=== PATIENT | female | born 1945 | race Caucasian/White ===

== ENCOUNTER 2021-04-07 16:40 | Inpatient (IN) | payer MEDICARE, OTHER ==
[~2021-04-07] VITALS: Ht 165.1 cm; Wt 107.5 kg
--- NOTE | 2021-04-07 17:12 | NUR ---
MIGUEL (DAUGHTER IN LAW) [phone].
[2021-04-07] MEDS ORDERED: ACETAMINOPHEN ES 500 MG TABLET ONE (17:24)
[2021-04-07] MEDS ORDERED: ACETAMINOPHEN ES 500 MG TABLET PO ONE (17:30)
[2021-04-07] MEDS ORDERED: IV NS 0.9% 500 ML BAG IV ONE ×2 (17:30→20:00)
--- NOTE | 2021-04-07 17:43 | NUR ---
[id number] FRM HOME, C/O DYSURIA, FEVER X 2 DAYS. PT AAOX3, DENIES CP, DIZZINESS, N/V AT THIS TIME. PLACED ON POULTRY HUSBANDRY TEACHER, ST. PLACED ON 2L OF O2, O2 SAT 98%. PT SEEN & EVAL'D BY DR. CAGLE. MEDICATED ORDERED, PT TERESITA WELL. WILL CONT TO MONITOR.
[2021-04-07 17:47] LABS: BASOPHILS # (AUTO) 0.1 /CMM (0.0-0.2); BASOPHILS % (AUTO) 0.4 % (0.0-2.0); EOSINOPHILS % (AUTO) 0.1 % (0.0-6.0); HEMATOCRIT 39 % (33-45); HEMOGLOBIN 12.9 g/dL (11.5-14.8); LYMPHOCYTES # (AUTO) 0.3 /CMM (0.8-4.8); LYMPHOCYTES % (AUTO) 1.6 % (20.0-44.0); MEAN CORPUSCULAR HGB CONC 34 g/dl (31.0-36.0); MEAN CORPUSCULAR VOLUME 96 fL (82-100); MONOCYTES # (AUTO) 0.6 /CMM (0.1-1.30); MONOCYTES % (AUTO) 2.9 % (2.0-12.0); NEUTROPHILS # (AUTO) 19.2 /CMM (1.8-8.9); PLATELET COUNT (AUTO) 221 /CMM (150-450); RED BLOOD CELL COUNT(AUTO) 3.99 MIL/uL (4.0-5.2); WHITE BLOOD COUNT (AUTO) 20.1 K/uL (4.3-11.0)
[2021-04-07 18:04] LABS: ALANINE AMINOTRANSFERASE 49 U/L (12-78); ALBUMIN 3.3 g/dL (3.4-5.0); ALKALINE PHOSPHATASE 155 U/L (46-116); ASPARTATE AMINOTRANSFERASE 44 U/L (15-37); BILIRUBIN,DIRECT 0.5 mg/dL (0.0-0.2); BILIRUBIN,TOTAL 1.1 mg/dL (0.2-1.0); CALCIUM, SERUM 8.6 mg/dL (8.5-10.1); CARBON DIOXIDE 27 mmol/L (21-32); CHLORIDE 102 mmol/L (98-107); CREATININE 1.6 mg/dL (0.6-1.3); GLUCOSE 195 mg/dL (74-106); POTASSIUM 3.2 mmol/L (3.5-5.1); SODIUM SERUM 139 mmol/L (136-145); TOTAL PROTEIN, SERUM 7.2 g/dL (6.4-8.2); UREA NITROGEN, BLOOD 28 mg/dL (7-18)
[2021-04-07] MEDS ORDERED: IV NS 0.9% 1,000 ML BAG IV ONE (18:30)
--- NOTE | 2021-04-07 18:38 | NUR ---
MOVE PACKET TURNED IN.
--- NOTE | 2021-04-07 18:48 | NUR ---
Tash gatica in [facility] - 04/07/21 at 1849 by PENNY CALLED NURSING SUP FOR TELE BED.
--- NOTE | 2021-04-07 18:49 | NUR ---
CALLED NURSING SUP FOR STEPHY BED.
[2021-04-07] MEDS ORDERED: LAMO200T10 PO (18:55)
[2021-04-07] MEDS ORDERED: ATEN50TA PO (18:55)
[2021-04-07] MEDS ORDERED: VORT10TA PO (18:55)
[2021-04-07] MEDS ORDERED: LACT10SO3 PO (18:55)
[2021-04-07] MEDS ORDERED: DORZ10DR10 EACHEYE (18:55)
[2021-04-07] MEDS ORDERED: TURM500C9 PO (18:55)
[2021-04-07] MEDS ORDERED: PREN1CAP27 PO (18:55)
[2021-04-07] MEDS ORDERED: CYCL30DR EACHEYE (18:55)
[2021-04-07] MEDS ORDERED: PRAV40TA3 PO (18:55)
[2021-04-07] MEDS ORDERED: POTA20TA83 PO (18:57)
[2021-04-07 19:35] LABS: BILIRUBIN,URINE SMALL (NEGATIVE); COLOR,URINE YELLOW (YELLOW); LEUKOCYTE ESTERASE ,URINE LARGE (NEGATIVE); NITRITE, URINE NEGATIVE (NEGATIVE); PH,URINE 5.5 (5.0-8.0); PROTEIN,URINE >=300 mg/dl (NEGATIVE); UGLUCOSE NEGATIVE (NEGATIVE)
[2021-04-07 19:44] LABS: BACTERIA,URINE 4+ /HPF (None Seen); RBC,URINE 51-80 /HPF (0-2); SQUAMOUS EPITHELIAL CELL,UR 0-2 /HPF (None Seen); WBC,URINE TOO NUMEROUS TO COUN /HPF (0-3)
[2021-04-07] MEDS ORDERED: PIPERACILLIN /TAZOBACTAM 3.375 G VIAL IV ONE (19:58)
[2021-04-07] MEDS ORDERED: VANCOMYCIN 1 GM VIAL ONE (19:58)
[2021-04-07] MEDS ORDERED: VANCOMYCIN 1 GM in IV D5W 250 ML IV ONE (20:00)
[2021-04-07] MEDS ORDERED: PIPERACILLIN /TAZOBACTAM 3.375 G in IV D5W 50 ML IV ONE (20:00)
[2021-04-07 20:30] LABS: BAND % (MANUAL) 16 % (0.0-5.0); LYMPHOCYTES % (MANUAL) 3 % (16-48); MONOCYTES % (MANUAL) 1 % (0-11.0); NEUTROPHILS % (MANUAL) 80 (42-76)
--- NOTE | 2021-04-07 20:43 | NUR ---
REPORT GIVEN TO ED RN FOR JUANY
[2021-04-07] MEDS ORDERED: NOREPINEPHRINE 4 MG/4 ML AMPUL IV ONE (20:59)
[2021-04-07] MEDS ORDERED: NOREPINEPHRINE 8 MG in IV NS 0.9% 250 ML IV ONE (21:00)
[2021-04-07] MEDS ORDERED: LEVALBUTEROL HCL NEB 1.25 MG/0.5 ML VIAL.NEB NEB PRN (22:00)
[2021-04-07] MEDS ORDERED: Potassium Chloride 20 MEQ in IV NS 0.9% 1,000 ML IV PRN (22:00)
[2021-04-07] MEDS ORDERED: MORPHINE SULFATE INJ 2 MG/ML DISP.SYRIN IV PRN (22:00)
[2021-04-07] MEDS ORDERED: CEFTRIAXONE 1 G in IV D5W 50 ML IV SCH (22:00)
[2021-04-07] MEDS ORDERED: ONDANSETRON HCL/PF 4 MG/2 ML VIAL IVP PRN (22:00)
[2021-04-07 22:05] VITALS: BP 157/90
--- NOTE | 2021-04-07 22:05 | NUR ---
PT TRANSPORTED TO ICU
[2021-04-07] MEDS ORDERED: CEFTRIAXONE 1 G VIAL ONE (22:24)
[2021-04-07] MEDS ORDERED: IV PREMIX NS +20MEQ KCL 1 L IV ONE (22:30)
[2021-04-07] MEDS ORDERED: PHENYLEPHRINE 10 MG/ML VIAL ONE (22:49)
[2021-04-07] MEDS: PHENYLEPHRINE 100 MG in IV NS 0.9% 240 ML IV PRN (22:55)
[2021-04-07 23:00] VITALS: BP 140/26
[2021-04-07 23:41] LABS: ABG BASE EXCESS -3.4 mmol/L; ABG OXYGEN SATURATION 95.6 % (92.0-98.5); ABG PCO2 28.5 mmHg (35.0-45.0); AaDO2 143.6 mmHg; COHb 1.1 % (0.5-1.5); MetHb 0.1 % (0.0-1.5); O2Hb 94.5 % (94.0-97.0); SITE, ABG Right Radial; VENT MODE, BG NC 4LPM O2
[2021-04-08] VITALS (80 sets, daily range): BP systolic 43–177; BP diastolic 13–93
[2021-04-08] MEDS ORDERED: LORAZEPAM INJ 2 MG/ML VIAL IV PRN (04:00)
[2021-04-08 04:18] LABS: BASOPHILS % (AUTO) 0.2 % (0.0-2.0); HEMATOCRIT 35 % (33-45); HEMOGLOBIN 11.6 g/dL (11.5-14.8); LYMPHOCYTES # (AUTO) 0.3 /CMM (0.8-4.8); LYMPHOCYTES % (AUTO) 1.9 % (20.0-44.0); MEAN CORPUSCULAR HGB CONC 34 g/dl (31.0-36.0); MEAN CORPUSCULAR VOLUME 97 fL (82-100); MONOCYTES # (AUTO) 0.5 /CMM (0.1-1.30); MONOCYTES % (AUTO) 3.3 % (2.0-12.0); NEUTROPHILS # (AUTO) 14.8 /CMM (1.8-8.9); NEUTROPHILS % (AUTO) 94.6 % (43.0-81.0); PLATELET COUNT (AUTO) 175 /CMM (150-450); RED BLOOD CELL COUNT(AUTO) 3.57 MIL/uL (4.0-5.2); WHITE BLOOD COUNT (AUTO) 15.7 K/uL (4.3-11.0)
[2021-04-08 04:36] LABS: ALANINE AMINOTRANSFERASE 38 U/L (12-78); ALBUMIN 2.7 g/dL (3.4-5.0); ALKALINE PHOSPHATASE 136 U/L (46-116); ASPARTATE AMINOTRANSFERASE 35 U/L (15-37); BILIRUBIN,TOTAL 0.9 mg/dL (0.2-1.0); CALCIUM, SERUM 7.7 mg/dL (8.5-10.1); CARBON DIOXIDE 24 mmol/L (21-32); CHLORIDE 103 mmol/L (98-107); CREATININE 1.6 mg/dL (0.6-1.3); GLUCOSE 176 mg/dL (74-106); PHOSPHORUS 2.6 mg/dL (2.5-4.9); POTASSIUM 3.3 mmol/L (3.5-5.1); SODIUM SERUM 139 mmol/L (136-145); TOTAL PROTEIN, SERUM 6.3 g/dL (6.4-8.2); UREA NITROGEN, BLOOD 32 mg/dL (7-18)
[2021-04-08 04:41] LABS: CHOLESTEROL 116 mg/dL (<200); HDL CHOLESTEROL 57 mg/dL (40-60); LDL 32 mg/dL (0-99); TRIGLYCERIDES 127 mg/dL (30-150)
--- NOTE | 2021-04-08 05:00 | NUR ---
TABLE MACHINE OPERATOR. PT WAS ADMITTED FROM ER WITH DIAGNOSIS UTI, SEPSIS. PT WAS AWAKE, ALERT ORIENTED, PLEASANT AND COOPERATIVE. SCOPE-A.FIB, WITH HR-110-130, HYPOTENSIVE. STARTED PHENYLEPHRINE DRIP, LEVOPHED D/C. 02 4L VIA N/C. F/C DRAINS SUFFICIENT AMT. OF CLOUDY URINE. AROUND MN PT GOT CONFUSED, TRYING TO GET OUT OF BED. SOFT WRIST RESTRAINTS APPLIED, ACCORDING MD ORDER. FOR AGITATION PT WAS GIVEN ATIVAN 1 MG IVP. SCOPE-ST WITH PAC'S. MEDICATED ORDERED. WILL CONTINUE CLOSE MONITORING.
[2021-04-08] MEDS ORDERED: MEROPENEM 500 MG in IV NS 0.9% 50 ML IV SCH (06:30)
[2021-04-08] MEDS ORDERED: FUROSEMIDE 20 MG/2 ML VIAL IV ONE (06:30)
--- NOTE | 2021-04-08 07:00 | NUR ---
RN NOTES RECEIVED PT ON BED, DRAWZY, RESTLESS, ORIENTED TO HER NAME , DOES NOT FOLLOW COMMAND, TRYING TO GET OUT OF THE BED, SAFETY MEASURES INPLACE, T=102.8, CONTINUE COOLING MEASURES , ON TELE A.FIB- ST HR IN 120'S, LARKIN DRAINING TO GRAVITY WITH CLOUDY YELLOW URINE, PT ON JAIME DRIP FOR BP SUPPORT, WILL TITRATED PER MD ORDER, IVF AT 70CC/HR RUNNING, SR UP x3, CALL LIGHT WITHIN EASY REACH BED LOCKED AND IN LOWEST POSITION, CONTINUE TO MONITOR .
[2021-04-08] MEDS: ACETAMINOPHEN 325 MG TABLET PO PRN ×2 (07:06→14:14)
[2021-04-08] MEDS: POTASSIUM CHLORIDE 20 MEQ TAB.PRT.SR PO SCH (08:08)
[2021-04-08] MEDS: PANTOPRAZOLE 40 MG TABLET.DR PO SCH (08:09)
[2021-04-08] MEDS: DOCUSATE SODIUM 100 MG CAPSULE PO SCH ×2 (08:09→16:36)
[2021-04-08] MEDS: LamoTRIgine 100 MG TABLET PO SCH (08:09)
[2021-04-08] MEDS: APIXABAN 2.5 MG TABLET PO SCH ×2 (08:09→16:36)
[2021-04-08] MEDS: MEROPENEM 1 G in IV NS 0.9% 100 ML IV SCH ×2 (08:38→21:05)
[2021-04-08] MEDS: DORZOLAMIDE OPTH 2% 10 ML BOTTLE EACHEYE SCH ×2 (08:38→16:37)
[2021-04-08] MEDS ORDERED: PHENYLEPHRINE 100 MG in IV NS 0.9% 240 ML IV PRN (09:00)
[2021-04-08] MEDS ORDERED: POTASSIUM CL. PREMIX PERIPHER. 50 ML IV SCH (09:30)
[2021-04-08] MEDS: HYDROCORTISONE SOD SUCCINATE 100 MG/2 ML VIAL IV SCH ×2 (11:19→21:05)
--- NOTE | 2021-04-08 11:49 | NUR ---
RN NOTES 6:30 Lasix held per carlos SHEET METAL ASSEMBLER AND RIVETER at this time ,
[2021-04-08] MEDS: PHENYLEPHRINE 100 MG in IV NS 0.9% 240 ML IV PRN (13:14)
--- NOTE | 2021-04-08 14:00 | NUR ---
RN NOTES PT STILL ON JAIME DRIP, CONTINUE TO TITRATED PER ORDER ,
[2021-04-08] MEDS: VANCOMYCIN 1 GM in IV D5W 250ml IV SCH (15:40)
--- NOTE | 2021-04-08 16:00 | NUR ---
RN NOTES JAIME AT .4MCG/KG/MIN RUNNING, PT RESTING , MORE ORIENTED AND ABLE TO MAKE CONVERSATION .
--- NOTE | 2021-04-08 19:38 | NUR ---
PHOTOGRAPHER'S MODEL NOTE: Rec'd pt in bed, A&Ox2-3. On 4LPM NC, tolerating well. O2 sat WNL. No resp distress noted at this time. A-fib on tele monitor. BURT PICC line patent and flushed w/ German infusing at 0.4mcg/kg/min. Will titrate per protocol. RAC #20 and left hand #20 patent and flushed. Dressings c/d/i. Kruger catheter in place, patent and draining yellow, cloudy urine via gravity. Safety measures in place. Will continue to monitor.
--- NOTE | 2021-04-08 20:42 | NUR ---
LOW PRESSURE BOILER OPERATOR NOTE: Nocturnal BIPAP placed on by RT. 10/06 rate: 12, fio2: 40%. Will continue to monitor
--- NOTE | 2021-04-08 20:48 | NUR ---
PT PLACED ON NOC BIPAP. RN NOTIFIED. CONTINUE TO MONITOR.
--- NOTE | 2021-04-08 22:03 | NUR ---
SCHOOL LIBRARY MEDIA PROGRAM DIRECTOR NOTE: Pt's BP stable. Titrate German drip off per protocol. Will continue to monitor.
[2021-04-09] VITALS (34 sets, daily range): BP systolic 61–157; BP diastolic 34–100
[2021-04-09 04:13] LABS: BASOPHILS % (AUTO) 0.1 % (0.0-2.0); HEMATOCRIT 30 % (33-45); HEMOGLOBIN 10.1 g/dL (11.5-14.8); LYMPHOCYTES # (AUTO) 0.3 /CMM (0.8-4.8); LYMPHOCYTES % (AUTO) 3.3 % (20.0-44.0); MEAN CORPUSCULAR HGB CONC 34 g/dl (31.0-36.0); MEAN CORPUSCULAR VOLUME 98 fL (82-100); MONOCYTES # (AUTO) 0.4 /CMM (0.1-1.30); MONOCYTES % (AUTO) 3.9 % (2.0-12.0); NEUTROPHILS # (AUTO) 8.6 /CMM (1.8-8.9); NEUTROPHILS % (AUTO) 92.7 % (43.0-81.0); PLATELET COUNT (AUTO) 120 /CMM (150-450); RED BLOOD CELL COUNT(AUTO) 3.04 MIL/uL (4.0-5.2); WHITE BLOOD COUNT (AUTO) 9.3 K/uL (4.3-11.0)
[2021-04-09 04:34] LABS: CALCIUM, SERUM 7.6 mg/dL (8.5-10.1); CREATININE 1.3 mg/dL (0.6-1.3); POTASSIUM 3.9 mmol/L (3.5-5.1)
[2021-04-09] MEDS: HYDROCORTISONE SOD SUCCINATE 100 MG/2 ML VIAL IV SCH ×3 (05:19→20:17)
--- NOTE | 2021-04-09 05:52 | NUR ---
SUPERVISOR CONTACT LENS NOTE: Noc BIPAP removed by RT, placed back on 4LPM NC. Will continue to monitor.
--- NOTE | 2021-04-09 05:55 | NUR ---
PT TAKEN OFF BIPAP AND PLACED ON 4L NC. RN NOTIFIED
[2021-04-09] MEDS: DORZOLAMIDE OPTH 2% 10 ML BOTTLE EACHEYE SCH ×2 (06:28→16:46)
--- NOTE | 2021-04-09 07:00 | NUR ---
RN NOTES RECEIVED PT ON BED, A/Ox4, ON 4L O2 N/C , O2 SAT WNL, NO SOB NOTED, ON TELE AFIB, SR HR IN 90'S, LARKIN DRAINING TO GRAVITY , R UPPER ARM PICC LINE SITE CLEAN, DRY AND INTACT, SR UP x3, CALL LIGHT WITHIN EASY REACH, BED LOCKED AND IN LOWEST POSITION, CONTINUE TO MONITOR.
[2021-04-09] MEDS: POTASSIUM CHLORIDE 20 MEQ TAB.PRT.SR PO SCH (08:41)
[2021-04-09] MEDS: PANTOPRAZOLE 40 MG TABLET.DR PO SCH (08:42)
[2021-04-09] MEDS: DOCUSATE SODIUM 100 MG CAPSULE PO SCH ×2 (08:42→16:46)
[2021-04-09] MEDS: APIXABAN 2.5 MG TABLET PO SCH (08:42)
[2021-04-09] MEDS: LamoTRIgine 100 MG TABLET PO SCH (08:43)
[2021-04-09] MEDS: MEROPENEM 1 G in IV NS 0.9% 100 ML IV SCH ×2 (08:44→20:15)
[2021-04-09] MEDS: VANCOMYCIN 1 GM in IV D5W 250ml IV SCH (10:08)
[2021-04-09] MEDS: IPRATROPIUM NEB FS 0.5 MG/2.5 ML AMPUL.NEB NEB SCH ×4 (11:53→23:47)
[2021-04-09] MEDS: METOPROLOL TARTRATE 25 MG TABLET PO SCH ×2 (12:10→20:19)
--- NOTE | 2021-04-09 15:24 | NUR ---
TELE/RN NOTES RECEIVED REPORT FROM [facility] DATA DEVELOPER. PATIENT IS ON 2 L OXYGEN VIA NASAL CANNULA SATURATING WELL. PATIENT IN NO APPARENT RESPIRATORY DISTRESS NOTED. NO COMPLAINED OF PAIN NOTED AT THIS TIME. WILL CONTINUE TO MONITOR.
--- NOTE | 2021-04-09 15:34 | NUR ---
FRANK NOTES PT TRANSFERRED TO ROOM [address] [place] [address], VIA ACLS PROTOCOL IN STABLE CONDITION WITH ALL HER BELONGING . Addendum: 04/09/21 at 1536 by SHEMAR BURNS RN CORRECTION ABOVE TIME IS 15:10 PM
--- NOTE | 2021-04-09 16:15 | NUR ---
TELE/RN NOTES VTE SCORE > 5, VU [place] MANAGER WAS AWARE AND ORDER ELIQUIS 5MG BID P.O. NOTED AND CARRIED OUT.
--- NOTE | 2021-04-09 18:43 | NUR ---
TELE/RN CLOSING NOTES PATIENT IS ALERT AND ORIENTED X3. PATIENT IS ON 2L OXYGEN VIA NASAL CANNULA. PATIENT IN NO APPARENT RESPIRATORY DISTRESS NOTED. NO COMPLAINED OF PAIN NOTED AT THIS TIME. TELE MONITOR IN PLACED UNCONTROLLED AFIB. IV ACCESS AT RIGHT UPPER ARM PICC LINE, RIGHT AC #20G AND LEFT HAND # 20 G PATENT AND INTACT. SAFETY PRECAUTIONS WAS IN PLACED, BED IN LOWEST POSITION AND LOCKED. SIDERAILS UP X2. CALL LIGHT WITHIN REACH. WILL ENDORSED TO CONSTRUCTION EXECUTIVE FOR JUANY.
--- NOTE | 2021-04-09 19:30 | NUR ---
CONTROL CLERK FOOD AND BEVERAGE OPENING NOTE RECEIVED PT AWAKE IN BED. A/O X3. PT IS ON 2L O2 VIA NC, TOLERATING WELL. NO SOB OR S/S OF RESPIRATORY DISTRESS NOTED. PT HAS NO C/O PAIN OR DISCOMFORT AT THIS TIME. PT ON EXTERNAL COIN MACHINE ASSEMBLER READING UNCONTROLLED AFIB. IV ACCESS NOTED AT RIGHT UPPER ARM PICC LINE, RIGHT AC #20 AND LEFT HAND #20. IV IS INTACT, PATENT, AND FLUSHING WELL. SAFETY MEASURES MAINTAINED. BED IN LOWEST LOCKED POSITION, HOB ELEVATED, SIDE RAILS UP X2. CALL LIGHT AND TABLE WITHIN REACH. WILL CONTINUE WITH PLAN OF CARE. Addendum: 04/10/21 at 0014 by CURT GARCIA RN CONTROL CLERK FOOD AND BEVERAGE OPENING NOTE RECEIVED PT AWAKE IN BED. A/O X3. PT IS ON 2L O2 VIA NC, TOLERATING WELL. NO SOB OR S/S OF RESPIRATORY DISTRESS NOTED. PT HAS NO C/O PAIN OR DISCOMFORT AT THIS TIME. PT ON COIN MACHINE ASSEMBLER READING UNCONTROLLED AFIB. IV ACCESS NOTED AT RIGHT UPPER ARM PICC LINE, RIGHT AC #20 AND LEFT HAND #20. IV IS INTACT, PATENT, AND FLUSHING WELL. SAFETY MEASURES MAINTAINED. BED IN LOWEST LOCKED POSITION, HOB ELEVATED, SIDE RAILS UP X2. CALL LIGHT AND TABLE WITHIN REACH. WILL CONTINUE WITH PLAN OF CARE.
[2021-04-10] MEDS: IPRATROPIUM NEB FS 0.5 MG/2.5 ML AMPUL.NEB NEB SCH ×5 (04:01→20:20)
[2021-04-10 04:19] VITALS: BP 143/73
[2021-04-10] MEDS: HYDROCORTISONE SOD SUCCINATE 100 MG/2 ML VIAL IV SCH ×3 (04:28→21:05)
[2021-04-10 06:04] LABS: CALCIUM, SERUM 8.7 mg/dL (8.5-10.1); CREATININE 1.3 mg/dL (0.6-1.3); POTASSIUM 3.8 mmol/L (3.5-5.1)
--- NOTE | 2021-04-10 06:43 | NUR ---
TILE LAYER CLOSING NOTE PT IS AWAKE IN BED. A/O X3. PT ON 4L O2 VIA NC, TOLERATING WELL. NO SOB OR S/S OF RESPIRATORY DISTRESS NOTED. PT ON BOOK AGENT READING UNCONTROLLED AFIB. IV ACCESS IS INTACT, PATENT, AND FLUSHING WELL. LARKIN CATH IN PLACE DRAINING CLEAR YELLOW URINE. ALL NEEDS HAVE BEEN MET. SAFETY PRECAUTIONS MAINTAINED AT ALL TIMES. BED IN LOWEST LOCKED POSITION, HOB ELEVATED, SIDE RAILS UP X2. CALL LIGHT AND TABLE WITHIN REACH. WILL ENDORSE TO ONCOMING NURSE FOR JUANY.
--- NOTE | 2021-04-10 08:00 | NUR ---
RN OPENING NOTE RECEIVED PATIENT IN BED, AO X 3, ABLE TO RESPONDS ALL STIMULI. NO S/S OF DISTRESS OBSERVED. SKIN IS WARM TO TOUCH KEEP CLEAN/DRY, INTACT IV AND PICC LINE SITES. RESPIRATORY EVEN AND UNLABORED WITH OXYGEN AT 4LPM VIA NC, NO RESP DISTRESS OBSERVED. KEPT ELEVATED HOB FOR ENSURE AIRWAY AND ASPIRATION PRECAUTION, ALSO LOWEST BED POSITION FOE SAFETY. CALL LIGHT WITHIN REACH, WILL CONTINUE TO MONITOR.
[2021-04-10] MEDS: PANTOPRAZOLE 40 MG TABLET.DR PO SCH (08:29)
[2021-04-10] MEDS: POTASSIUM CHLORIDE 20 MEQ TAB.PRT.SR PO SCH (08:30)
[2021-04-10] MEDS: LamoTRIgine 100 MG TABLET PO SCH (08:30)
[2021-04-10] MEDS: DOCUSATE SODIUM 100 MG CAPSULE PO SCH ×2 (08:30→16:56)
[2021-04-10] MEDS: METOPROLOL TARTRATE 25 MG TABLET PO SCH ×2 (08:30→21:06)
[2021-04-10] MEDS: MEROPENEM 1 G in IV NS 0.9% 100 ML IV SCH ×2 (08:34→20:56)
[2021-04-10] MEDS: FUROSEMIDE 20 MG TABLET PO SCH (10:37)
[2021-04-10] MEDS: DORZOLAMIDE OPTH 2% 10 ML BOTTLE EACHEYE SCH ×2 (13:06→16:03)
--- NOTE | 2021-04-10 15:19 | NUR ---
PATIENT DVT SCORE OVER 5, MD AWARE HOWEVER DR. FRANCIS HELD ANTICOAGULANT MEDICATION,
--- NOTE | 2021-04-10 18:50 | NUR ---
RN CLOSING NOTE PATIENT RESTING IN ROOM, DOES NO OBSERVED DISTRESS. SKIN IS WARM TOUCH, KEEP CLEAN/DRY. PATIENT IN LARKIN CAHTE. RESPIRATORY EVEN AND UNLABORED ON ROOM AIR, O2SAT 89-93% AT RESTING. KEPT ELEVATED HOB FOR ENSURE AIRWAY, ALSO LOWEST BED POSITION FOR SAFETY. DTR AT BED SIDE, CALL LIGHT WITHIN REACH, WILL ENDORSE HUMAN INTELLIGENCE.
--- NOTE | 2021-04-10 19:30 | NUR ---
REO ASSET MANAGER OPENING NOTES RECEIVED PATIENT IN BED, AWAKE, A&O X4, IN NO ACUTE DISTRESS NOTED. ON ROOM AIR TOLERATING WELL, O2 SATURATION AT 93-94%. ON SNAP SHEARER, NOTED WITH A-FIB WITH HR 109. NO COMPLAINTS OF CHEST PAIN AT THIS TIME. WITH 3 LUMEN PICC LINE NOTED ON RIGHT UPPER ARM, INTACT AND FLUSHES WELL, NO REDNESS, NO INFILTRATION NOTED. SAFETY PRECAUTIONS OBSERVED: BED ON LOWEST LOCKED POSITION, SIDE RAILS UP X2, KEPT CALL LIGHT WITHIN EASY REACH. INSTRUCTED TO USE CALL LIGHT WHEN ASSISTANCE IS NEEDED. PATIENT VERBALIZED UNDERSTANDING. WILL CONTINUE TO MONITOR PATIENT'S CURRENT STATUS.
[2021-04-10 20:00] VITALS: BP 107/69
[2021-04-10 20:17] VITALS: BP 107/69
[2021-04-10] MEDS ORDERED: BENZONATATE 100 MG CAPSULE PO PRN (21:00)
[2021-04-10] MEDS ORDERED: APIXABAN 5 MG TABLET PO SCH (21:00)
[2021-04-11] VITALS (8 sets, daily range): BP systolic 100–146; BP diastolic 69–98
--- NOTE | 2021-04-11 00:04 | NUR ---
RN NOTES PATIENT REFUSED TO WEAR BIPAP, RISKS AND BENEFITS EXPLAINED 3 TIMES. STILL REFUSED.
[2021-04-11] MEDS: IPRATROPIUM NEB FS 0.5 MG/2.5 ML AMPUL.NEB NEB SCH ×7 (00:07→23:42)
[2021-04-11] MEDS: HYDROCORTISONE SOD SUCCINATE 100 MG/2 ML VIAL IV SCH ×3 (04:25→20:28)
[2021-04-11] MEDS: DORZOLAMIDE OPTH 2% 10 ML BOTTLE EACHEYE SCH ×2 (06:14→16:36)
[2021-04-11 06:26] LABS: CALCIUM, SERUM 8.6 mg/dL (8.5-10.1); CREATININE 1.1 mg/dL (0.6-1.3); POTASSIUM 4.5 mmol/L (3.5-5.1)
--- NOTE | 2021-04-11 06:33 | NUR ---
MANAGER TELEMARKETING CLOSING NOTES PATIENT IN BED, AWAKE, A&O X4, IN NO ACUTE DISTRESS NOTED. ON ROOM AIR TOLERATING WELL, O2 SATURATION AT 93-94%. ON OIL FIELD PUMPER, NOTED WITH A-FIB WITH HR 90'S. NO COMPLAINTS OF CHEST PAIN AT THIS TIME. WITH 3 LUMEN PICC LINE NOTED ON RIGHT UPPER ARM, INTACT AND FLUSHES WELL, NO REDNESS, NO INFILTRATION NOTED. WITH FC CONNECTED TO URINE BAG DRAINING CLEAR YELLOW URINE. SAFETY PRECAUTIONS OBSERVED AND MAINTAINED DURING THE SHIFT: BED ON LOWEST LOCKED POSITION, SIDE RAILS UP X2, KEPT CALL LIGHT WITHIN EASY REACH. ALL DUE MEDS GIVEN ORDERED. ENDORSED TO MORNING SHIFT NURSE FOR CONTINUITY OF CARE.
--- NOTE | 2021-04-11 07:50 | NUR ---
TELE/RN OPENING NOTES RECEIVED PATIENT IN BED, AWAKE, A&O X4, NO DISTRESS NOTED. ON OXYGEN AT 4LPM VIA NASAL CANNULA WITH O2 SAT READING OF 99%. ON GRAINING MACHINE OPERATOR, NO COMPLAINTS OF CHEST PAIN AT THIS TIME. WITH 3 LUMEN PICC LINE NOTED ON RIGHT UPPER ARM, INTACT AND FLUSHES WELL, NO REDNESS, NO INFILTRATION NOTED. WITH FC CONNECTED TO URINE BAG DRAINING TO CLEAR YELLOW URINE. SAFETY PRECAUTIONS IN PLACE. BED ON LOWEST LOCKED POSITION, SIDE RAILS UP X2, CALL LIGHT WITHIN REACH. WILL CONTINUE TO MONITOR PATIENT.
[2021-04-11] MEDS: LamoTRIgine 100 MG TABLET PO SCH (08:30)
[2021-04-11] MEDS: POTASSIUM CHLORIDE 20 MEQ TAB.PRT.SR PO SCH (08:30)
[2021-04-11] MEDS: PANTOPRAZOLE 40 MG TABLET.DR PO SCH (08:31)
[2021-04-11] MEDS: METOPROLOL TARTRATE 25 MG TABLET PO SCH ×2 (08:31→20:29)
[2021-04-11] MEDS: FUROSEMIDE 20 MG TABLET PO SCH (08:31)
[2021-04-11] MEDS: DOCUSATE SODIUM 100 MG CAPSULE PO SCH ×2 (08:31→17:24)
[2021-04-11] MEDS: MEROPENEM 1 G in IV NS 0.9% 100 ML IV SCH ×2 (09:03→20:28)
[2021-04-11] MEDS: BENZONATATE 100 MG CAPSULE PO SCH ×2 (13:49→17:25)
[2021-04-11] MEDS: VANCOMYCIN 1.25 GM in IV D5W 250 ML IV SCH (16:33)
--- NOTE | 2021-04-11 19:05 | NUR ---
TELE/RN CLOSING NOTES PATIENT IN BED, AWAKE, A&O X4, NO DISTRESS NOTED. ON OXYGEN AT 4LPM VIA NASAL CANNULA WITH O2 SAT READING OF 99%. REFUSED COPY READER, DR. RO MADE AWARE, NO COMPLAINTS OF CHEST PAIN AT THIS TIME. WITH 3 LUMEN PICC LINE NOTED ON RIGHT UPPER ARM, INTACT AND FLUSHES WELL, NO REDNESS, NO INFILTRATION NOTED. WITH FC CONNECTED TO URINE BAG DRAINING TO CLEAR YELLOW URINE. SAFETY PRECAUTIONS IN PLACE. BED ON LOWEST LOCKED POSITION, SIDE RAILS UP X2, CALL LIGHT WITHIN REACH. WILL ENDORSE TO THE NEXT SHIFT FOR CONTINUITY OF CARE.
--- NOTE | 2021-04-11 19:35 | NUR ---
MECHANICAL MAINTENANCE SUPERVISOR NOTES RECEIVED ON BED A/O X3,ABLE TO VERBALIZED NEEDS,BREATHING REGULAR,NOT IN ANY FORM OF DISTRESS,O2 IN USED AT 4L/NC,O2 SAT 92%.WITH RIGHT UPPER ARM PICC LINE FOR MEDS,DVT PUMP ION USED FOR DVT PROPHYLAXIS.AMBULATE WITH ASSIST.LARKIN CATH IN PLACE DRAINING CLEAR TO YELLOW URINE OUTPUT.FAL RISK,BED ALARM TRIGGERED,BED ON LOWEST POSITION AND LOCKED.CALL LIGHT IN REACH.NEEDS ANTICIPATED.
[2021-04-12] MEDS: IPRATROPIUM NEB FS 0.5 MG/2.5 ML AMPUL.NEB NEB SCH ×6 (03:30→23:35)
[2021-04-12] MEDS: HYDROCORTISONE SOD SUCCINATE 100 MG/2 ML VIAL IV SCH ×3 (04:31→20:33)
[2021-04-12 06:01] LABS: EOSINOPHILS % (AUTO) 0.2 % (0.0-6.0); HEMATOCRIT 32 % (33-45); HEMOGLOBIN 10.7 g/dL (11.5-14.8); LYMPHOCYTES # (AUTO) 0.8 /CMM (0.8-4.8); LYMPHOCYTES % (AUTO) 8.1 % (20.0-44.0); MEAN CORPUSCULAR HGB CONC 34 g/dl (31.0-36.0); MEAN CORPUSCULAR VOLUME 97 fL (82-100); MONOCYTES # (AUTO) 1.1 /CMM (0.1-1.30); MONOCYTES % (AUTO) 11.6 % (2.0-12.0); NEUTROPHILS # (AUTO) 7.7 /CMM (1.8-8.9); NEUTROPHILS % (AUTO) 80.1 % (43.0-81.0); PLATELET COUNT (AUTO) 163 /CMM (150-450); RED BLOOD CELL COUNT(AUTO) 3.28 MIL/uL (4.0-5.2); WHITE BLOOD COUNT (AUTO) 9.6 K/uL (4.3-11.0)
[2021-04-12] MEDS: DORZOLAMIDE OPTH 2% 10 ML BOTTLE EACHEYE SCH ×2 (06:05→17:13)
--- NOTE | 2021-04-12 06:23 | NUR ---
PENCIL INSPECTOR CLOSING NOTES PATIENT IN BED, AWAKE, A/O X3,ABLE TO VERBALIZED NEEDS,BREATHING EVEN AND UNLABORED,NOT IN ANY FORM OF DISTRESS NOTED,O2 IN USED AT 4L/NC,O2 SAT 94%, NO SOB NOTED. REFUSED TO BE HOOKED TO TELE MONITOR, DR. RO AWARE. WITH RIGHT UPPER ARM PICC LINE INTACT, NO REDNESS NOTED, DVT PUMP ION USED FOR DVT PROPHYLAXIS. AMBULATES WITH ASSIST. WITH FC CONNECTED TO URINE BAG IN DRAINING CLEAR TO YELLOW URINE OUTPUT. SAFETY PRECAUTIONS OBSERVED AND MAINTAINED AT ALL TIMES: BED ON LOWEST LOCKED POSITION, SIDE RAILS UP X 2,KEPT CALL LIGHT WITHIN EASY REACH. ALL DUE MEDS GIVE ORDERED. ENDORSED TO MORNING SHIFT NURSE FOR CONTINUITY OF CARE.
[2021-04-12 06:34] LABS: CALCIUM, SERUM 8.7 mg/dL (8.5-10.1); CREATININE 1.2 mg/dL (0.6-1.3); POTASSIUM 4.9 mmol/L (3.5-5.1)
--- NOTE | 2021-04-12 07:29 | NUR ---
TELE/RN OPENING NOTES RECEIVED PATIENT IN BED, AWAKE, A/O X3,ABLE TO VERBALIZED NEEDS,BREATHING EVEN AND UNLABORED,NOT IN ANY FORM OF DISTRESS NOTED,O2 IN USED AT 4L/NC,O2 SAT 97%, NO SOB NOTED. REFUSED TO BE HOOKED TO TELE MONITOR, DR. RO AWARE. WITH RIGHT UPPER ARM PICC LINE INTACT, NO REDNESS NOTED, DVT PUMP IN USED FOR DVT PROPHYLAXIS. AMBULATES WITH ASSIST. WITH FC CONNECTED TO URINE BAG IN DRAINING CLEAR TO YELLOW URINE OUTPUT. SAFETY PRECAUTIONS IN PLACED. BED ON LOWEST LOCKED POSITION, SIDE RAILS UP X 2, CALL LIGHT WITHIN REACH. WILL CONTINUE TO MONITOR.
[2021-04-12] MEDS: PANTOPRAZOLE 40 MG TABLET.DR PO SCH (07:49)
[2021-04-12 08:14] VITALS: BP 126/86
[2021-04-12] MEDS: LEVOTHYROXINE SODIUM 112 MCG TABLET PO SCH (09:05)
[2021-04-12] MEDS: BENZONATATE 100 MG CAPSULE PO SCH ×3 (09:24→17:13)
[2021-04-12] MEDS: MEROPENEM 1 G in IV NS 0.9% 100 ML IV SCH ×2 (09:24→20:33)
[2021-04-12] MEDS: METOPROLOL TARTRATE 25 MG TABLET PO SCH ×2 (09:24→20:33)
[2021-04-12] MEDS: DOCUSATE SODIUM 100 MG CAPSULE PO SCH ×2 (09:24→17:13)
[2021-04-12] MEDS: LamoTRIgine 100 MG TABLET PO SCH (09:25)
[2021-04-12] MEDS: POTASSIUM CHLORIDE 20 MEQ TAB.PRT.SR PO SCH (09:25)
[2021-04-12] MEDS: FUROSEMIDE 20 MG TABLET PO SCH (09:25)
[2021-04-12] MEDS ORDERED: ALBUTEROL HALF STRENGTH 1.25 MG/3 ML VIAL.NEB NEB PRN (14:00)
[2021-04-12] MEDS: VANCOMYCIN 1.25 GM in IV D5W 250 ML IV SCH (15:29)
[2021-04-12 16:04] VITALS: BP 120/85
--- NOTE | 2021-04-12 18:30 | NUR ---
TELE/RN NOTES PATIENT POSITIVE FOR ESBL IN URINE AND BLOOD. CONTACT PRECAUTION/ISOLATION CARRIED OUT. WILL ENDORSE TO THE NEXT SHIFT.
--- NOTE | 2021-04-12 19:06 | NUR ---
TELE/RN CLOSING NOTES PATIENT IN BED, AWAKE, A/O X3,ABLE TO VERBALIZED NEEDS. CURRENTLY ON O2 AT 4L/MIN VIA NC,O2 SAT 95%, NO DISTRESS NOTED AT THIS TIME. REFUSED TO BE HOOKED TO TELE MONITOR, DR. RO AWARE. WITH RIGHT UPPER ARM PICC LINE INTACT, NO REDNESS NOTED AND ON SALINE LOCK. DVT PUMP IN USED FOR DVT PROPHYLAXIS. AMBULATES WITH ASSIST. WITH FC CONNECTED TO URINE BAG IN DRAINING CLEAR TO YELLOW URINE OUTPUT. SAFETY PRECAUTIONS IN PLACED ALL THROUGHOUT THE SHIFT. BED ON LOWEST LOCKED POSITION, SIDE RAILS UP X 2, CALL LIGHT WITHIN REACH. WILL ENDORSE TO THE NEXT SHIFT FOR CONTINUITY OF CARE.
--- NOTE | 2021-04-12 19:56 | NUR ---
RN OPENING NOTES Patient is awake, A&Ox3, no signs of distress. Able to make needs known. Denies any needs at this time. Still refuses tele monitor. BURT PICC line intact and patent. Kruger catheter draining clear yellow urine. Will continue to monitor.
[2021-04-12 20:00] VITALS: BP 143/68
[2021-04-13] MEDS: IPRATROPIUM NEB FS 0.5 MG/2.5 ML AMPUL.NEB NEB SCH ×4 (03:42→14:42)
[2021-04-13] MEDS: HYDROCORTISONE SOD SUCCINATE 100 MG/2 ML VIAL IV SCH ×2 (05:38→13:06)
[2021-04-13 06:47] LABS: BASOPHILS % (AUTO) 0.2 % (0.0-2.0); EOSINOPHILS % (AUTO) 0.2 % (0.0-6.0); HEMATOCRIT 31 % (33-45); HEMOGLOBIN 10.4 g/dL (11.5-14.8); LYMPHOCYTES # (AUTO) 0.9 /CMM (0.8-4.8); LYMPHOCYTES % (AUTO) 7.3 % (20.0-44.0); MEAN CORPUSCULAR HGB CONC 34 g/dl (31.0-36.0); MEAN CORPUSCULAR VOLUME 97 fL (82-100); MONOCYTES # (AUTO) 1.1 /CMM (0.1-1.30); MONOCYTES % (AUTO) 8.4 % (2.0-12.0); NEUTROPHILS # (AUTO) 10.9 /CMM (1.8-8.9); NEUTROPHILS % (AUTO) 83.9 % (43.0-81.0); PLATELET COUNT (AUTO) 195 /CMM (150-450); RED BLOOD CELL COUNT(AUTO) 3.17 MIL/uL (4.0-5.2); WHITE BLOOD COUNT (AUTO) 12.9 K/uL (4.3-11.0)
--- NOTE | 2021-04-13 06:52 | NUR ---
MS RN CLOSING NOTES Patient A&Ox3. VSS. slept well throughout the night though easy to rouse. Bipap in place by BULK STATION OPERATOR. Patient reports shes looking forward to going home. BURT PICC line intact and patent, no redness or swelling to surrounding tissue. No overnight events. Urine to amin yellow and clear. Continue on Contact precautions for ESBL to urine. continue on ABT, no ase.
[2021-04-13 07:20] LABS: CALCIUM, SERUM 8.6 mg/dL (8.5-10.1); POTASSIUM 4.2 mmol/L (3.5-5.1)
--- NOTE | 2021-04-13 07:30 | NUR ---
received pt. in am alert and oriented x3,with many complaints.vs stable.f/c to grv. drainage.
[2021-04-13 07:38] LABS: BAND % (MANUAL) 1 % (0.0-5.0); LYMPHOCYTES % (MANUAL) 7 % (16-48); METAMYELOCYTES % 1 % (0-0); MONOCYTES % (MANUAL) 5 % (0-11.0); MYELOCYTES % 2 % (0-0); NEUTROPHILS % (MANUAL) 84 (42-76)
[2021-04-13 08:12] VITALS: BP 147/96
[2021-04-13] MEDS: PANTOPRAZOLE 40 MG TABLET.DR PO SCH (08:36)
[2021-04-13] MEDS: LEVOTHYROXINE SODIUM 112 MCG TABLET PO SCH (08:36)
[2021-04-13] MEDS: DORZOLAMIDE OPTH 2% 10 ML BOTTLE EACHEYE SCH (08:43)
[2021-04-13] MEDS: FUROSEMIDE 20 MG TABLET PO SCH (09:15)
[2021-04-13] MEDS: POTASSIUM CHLORIDE 20 MEQ TAB.PRT.SR PO SCH (09:15)
[2021-04-13] MEDS: DOCUSATE SODIUM 100 MG CAPSULE PO SCH (09:15)
[2021-04-13] MEDS: LamoTRIgine 100 MG TABLET PO SCH (09:15)
[2021-04-13] MEDS: MEROPENEM 1 G in IV NS 0.9% 100 ML IV SCH (09:16)
[2021-04-13] MEDS: METOPROLOL TARTRATE 25 MG TABLET PO SCH (09:16)
[2021-04-13] MEDS: BENZONATATE 100 MG CAPSULE PO SCH ×2 (09:20→13:07)
--- NOTE | 2021-04-13 10:00 | NUR ---
pt. up to commode.voided.
[2021-04-13] MEDS ORDERED: DOCU-270 PO (15:12)
[2021-04-13] MEDS ORDERED: PANT40TA2 PO (15:12)
[2021-04-13] MEDS ORDERED: FURO20TA4 PO (15:12)
[2021-04-13] MEDS ORDERED: BENZ-13 PO (15:12)
[2021-04-13] MEDS ORDERED: IPRA0.2S9 NEB (15:12)
[2021-04-13] MEDS ORDERED: METH4TAB17 PO (15:12)
[2021-04-13] MEDS ORDERED: LEVO112T5 PO (15:12)
[2021-04-13] MEDS ORDERED: ALBU1.25 NEB (15:12)
[2021-04-13] MEDS ORDERED: METO25TA20 PO (15:12)
[2021-04-13] MEDS ORDERED: MERO1PIG IV (15:12)
[2021-04-13 16:10] VITALS: BP 122/71
--- NOTE | 2021-04-13 16:15 | NUR ---
harriett drummond physical therapy teacher in and dc order given along with new meds.rn spoke with skilled nursing case manager. several times and arranging for dc along with antibiotics and home health nurse. family here and transported to [facility] via w/c for dc home.dtr-in -law made aware new meds at pt's pharmacy.
== END 2021-04-13 16:15 | disposition home health service (06) | DRG 871 ==
LOC: ER 16:42 → ICU 20:12 → TELE 04-09 15:03 → MED 04-12 17:50
PROVIDERS: ADMIT Internal Medicine; ATTEND Nurse Practitioner Acute Care
PROC: 02HV33Z Insertion of Infusion Device into Superior Vena Cava, Percutaneous Approach (ICD-10-PCS; principal; 2021-04-08)
PROC: B548ZZA Ultrasonography of Superior Vena Cava, Guidance (ICD-10-PCS; 2021-04-08)
DX: A41.50 Gram-negative sepsis, unspecified (principal); G92 Toxic encephalopathy; N17.0 Acute kidney failure with tubular necrosis; R65.21 Severe sepsis with septic shock; I50.33 Acute on chronic diastolic (congestive) heart failure; D68.59 Other primary thrombophilia; J98.11 Atelectasis; E87.2 Acidosis; J90 Pleural effusion, not elsewhere classified; I48.20 Chronic atrial fibrillation, unspecified; E44.0 Moderate protein-calorie malnutrition; I11.0 Hypertensive heart disease with heart failure; Z20.822 Contact with and (suspected) exposure to COVID-19; Z87.440 Personal history of urinary (tract) infections; E66.9 Obesity, unspecified; Z68.39 Body mass index [BMI] 39.0-39.9, adult; Z88.8 Allergy status to other drugs, medicaments and biological substances; Z79.899 Other long term (current) drug therapy; Z95.0 Presence of cardiac pacemaker; Z96.652 Presence of left artificial knee joint; Z90.49 Acquired absence of other specified parts of digestive tract; R74.01 Elevation of levels of liver transaminase levels; E78.5 Hyperlipidemia, unspecified; Z74.09 Other reduced mobility; E11.65 Type 2 diabetes mellitus with hyperglycemia; E83.51 Hypocalcemia; H40.9 Unspecified glaucoma; G47.33 Obstructive sleep apnea (adult) (pediatric); I35.0 Nonrheumatic aortic (valve) stenosis; F32.9 Major depressive disorder, single episode, unspecified; E87.6 Hypokalemia; Z86.19 Personal history of other infectious and parasitic diseases
CPT/HCPCS: 36415; 36600; 71045-TC; 80048-TC; 80053-TC; 80061-TC; 80076-TC; 81001; 82533; 83605-TC; 83735-TC; 83880; 84100-TC; 84443-TC; 84484-TC; 85025-TC; 85730-TC; 87040-TC; 87081-TC; 87086-TC; 87186-TC; 93307-TC; 94660; 94760-TC; 94762-TC; 94799-TC; 97112-TC; 97116-TC; 97530-TC; C9803; G0378; J0696; J1720; J1940; J2060; J2185; J2370; J2543; J3370; J3480; J3490; J7030; J7040; J7050; J7060